=== PATIENT | male | born 1945 | race Caucasian/White ===

== ENCOUNTER 2017-01-07 07:43 | Inpatient (IN) | payer OTHER ==
[2017-01-07] VITALS (22 sets, daily range): BP systolic 92–135; BP diastolic 52–72; PULSE 62–92; RESP 8–20; Ht 170.2 cm; Wt 68.0 kg
[~2017-01-07] VITALS: Ht 170.2 cm; Wt 68.0 kg
[~2017-01-07 07:43] MED LIST: CEFAZOLIN 1 GM INJ ONE; CEFAZOLIN 2 GM/50 ML (PMX) 50 ML IVPB SCH; EPHEDrine SULFATE 50 MG/5 ML SYG ONE
[2017-01-07] MEDS ORDERED: DICL75TA2 PO (09:28)
[2017-01-07] MEDS ORDERED: BECL8.7A5 INH (09:28)
[2017-01-07] MEDS ORDERED: GABA-526 PO (09:28)
--- NOTE | 2017-01-07 11:02 | HPN ---
Date/Time of Note Date/Time of Note DATE: 01/07/17 TIME: 11:01 Interval H&P Admission Note Pt. seen H&P reviewed: No system changes SHARAD LAMB MD Jan 07, 2017 11:02
[2017-01-07] MEDS ORDERED: BUPIVACAINE 0.25%/EPI (SDV) 30 ML INJ ONE (11:04)
[2017-01-07] MEDS ORDERED: FENTAnyl 50 MCG/ML VIAL ONE (11:04)
[2017-01-07] MEDS ORDERED: CA CHLORIDE 10% 10 ML SYRINGE ONE ×2 (11:05→12:17)
[2017-01-07] MEDS ORDERED: THROMBIN 5000 UNIT VIAL ONE ×4 (11:05→13:58)
[2017-01-07] MEDS ORDERED: POLYMYXIN/BACITRACIN 1L IRRIG ONE (11:05)
[2017-01-07] MEDS ORDERED: NEOSTIGMINE 3 MG/3 ML SYRINGE ONE (11:16)
[2017-01-07] MEDS ORDERED: PROPOFOL 20 ML ONE (11:16)
[2017-01-07] MEDS ORDERED: ROCURONIUM 50 MG INJ ONE (11:16)
[2017-01-07] MEDS ORDERED: LIDOCAINE 100 MG SYRINGE ONE (11:16)
[2017-01-07] MEDS ORDERED: MIDAZOLAM 1 MG/ML 2 ML INJ ONE (11:16)
[2017-01-07] MEDS ORDERED: ONDANSETRON 4 MG INJ ONE (11:16)
[2017-01-07] MEDS ORDERED: GLYCOPYRROLATE 0.4 MG INJ ONE (11:16)
[2017-01-07] MEDS ORDERED: DEXAMETHASONE 4 MG/ML 1 ML INJ ONE (11:17)
[2017-01-07] MEDS ORDERED: CYCLOBENZAPRINE 10 MG TAB PO PRN (11:30)
[2017-01-07] MEDS ORDERED: NALOXONE (0.4 MG/ML) INJ IV PRN (11:30)
[2017-01-07] MEDS ORDERED: AL HYDROX/MG HYDROX/SIMETH 30 ML CUP PO PRN (11:30)
[2017-01-07] MEDS ORDERED: PROCHLORPERAZINE 10 MG INJ IV PRN (11:30)
[2017-01-07] MEDS ORDERED: HYDROCODONE/APAP (5/325) TAB PO PRN ×2 (11:30)
[2017-01-07] MEDS ORDERED: DIPHENHYDRAMINE 50 MG INJ IV PRN ×2 (11:30→12:30)
[2017-01-07] MEDS ORDERED: CEFAZOLIN 1 GM/50 ML (PMX) 50 ML IVPB SCH (11:30)
[2017-01-07] MEDS ORDERED: HYDROmorphONE 1 MG/ML SYG IV PRN (11:30)
[2017-01-07] MEDS ORDERED: BISACODYL 10 MG SUPP PR PRN (11:30)
[2017-01-07] MEDS ORDERED: HEPARIN 1000 UNITS/ML 10 ML INJ ONE (12:06)
[2017-01-07] MEDS ORDERED: FENTAnyl 50 MCG/ML VIAL IV PRN ×3 (12:30)
[2017-01-07] MEDS ORDERED: HYDROmorphONE (0.2 MG/ML) 10ML SYG IV PRN ×3 (12:30)
[2017-01-07] MEDS ORDERED: ONDANSETRON 4 MG INJ IV PRN (12:30)
[2017-01-07] MEDS ORDERED: MIDAZOLAM 1 MG/ML 2 ML INJ IV PRN (12:30)
[2017-01-07] MEDS ORDERED: hydrALAzine 20 MG INJ IV PRN (12:30)
[2017-01-07] MEDS ORDERED: EPHEDrine SULFATE 50 MG/5 ML SYG IV PRN (12:30)
[2017-01-07] MEDS ORDERED: TRIMETHOBENZAMIDE 100 MG/ML VIAL IM PRN (12:30)
[2017-01-07] MEDS ORDERED: MEPERIDINE 25 MG INJ IV PRN (12:30)
[2017-01-07] MEDS ORDERED: LABETALOL HCL 20MG INJ IV PRN (12:30)
[2017-01-07] MEDS ORDERED: GELATIN SIZE 100 SPONGE ONE ×2 (12:41→13:58)
[2017-01-07] MEDS ORDERED: IOHEXOL 300MG/ML 30 ML BTL ONE (12:56)
[2017-01-07] MEDS ORDERED: THROMBIN 5000 UNIT VIAL ZFS SCH (13:00)
[2017-01-07] MEDS: BUPIVACAINE 0.25% (MPF) 30 ML INJ ONE ×3 (13:12→15:16)
--- NOTE | 2017-01-07 15:37 | RADRPT ---
PROCEDURE: Lumbar spine series CLINICAL INDICATION: Intraoperative evaluation TECHNIQUE: 2 intraoperative lateral images of the lumbar spine were obtained. 4.9 seconds of fluo roscopic time was utilized. COMPARISON: None FINDINGS: Bony detail is suboptimal. There is localization of the L3 and L5 vertebral levels. There is no gr oss malalignment. IMPRESSION: Intraoperative images and fluoroscopic time as described above. RPTAT:AAJJ Physician Ashkan Date Time Electronically viewed and signed by Lacho Hartley Physician on 01/07/2017 15:37 /
[2017-01-07 15:47] LABS: BASOPHIL # 0.1 10^3/ul (0.0-0.1); BASOPHILS % 0.4 % (0.0-2.0); EOSINOPHILS % 0.1 % (0.0-7.0); HEMATOCRIT 39.1 % (42.0-52.0); LYMPHOCYTES # 2.8 10^3/ul (0.8-2.9); LYMPHOCYTES % 12.7 % (15.0-51.0); MEAN CORPUSCULAR HEMOGLOBIN 31.1 pg (29.0-33.0); MEAN CORPUSCULAR HGB CONC 33.3 g/dl (32.0-37.0); MEAN CORPUSCULAR VOLUME 93.4 fl (82.0-101.0); MONOCYTE # 0.2 10^3/ul (0.3-0.9); MONOCYTES % 0.9 % (0.0-11.0); NEUTROPHILS % 85.9 % (39.0-77.0); PLATELET COUNT 259 10^3/UL (140-440); RED BLOOD COUNT 4.19 10^6/ul (4.70-6.10); RED CELL DISTRIBUTION WIDTH 13.2 % (11.5-14.5); UNCORRECTED WBC 22.2 10^3/ul (4.8-10.8); WHITE BLOOD COUNT 22.2 10^3/ul (4.8-10.8)
[2017-01-07 15:50] LABS: CONDITION 1; LH ANALYZER COMMENTS 1
[2017-01-07 16:02] LABS: POTASSIUM 4.6 mmol/L (3.5-5.1)
[2017-01-07 16:08] LABS: CREATININE 0.88 mg/dl (0.61-1.24)
[2017-01-07 16:12] LABS: CALCIUM 8.2 mg/dl (8.4-10.2)
[2017-01-07] MEDS: D5W-0.45 NACL + KCL 20 MEQ 1,000 ML IV SCH (17:27)
--- NOTE | 2017-01-07 17:31 | OPR ---
DATE OF OPERATION: 01/07/2017 PREOPERATIVE DIAGNOSIS: L2 through L5 lumbar spinal stenosis at L2-3 disk herniation. POSTOPERATIVE DIAGNOSIS: L2 through L5 lumbar spinal stenosis at L2-L3 disk herniation. OPERATION PERFORMED: 1. Removal of spinous processes of L3, L4, and L5 for central decompressive laminectomy. 2. L2-3 with a bilateral partial facetectomy and foraminotomy with decompression of exiting and traversing L3 nerve root. 3. L3-4 with a central decompressive laminectomy with partial facetectomy and foraminotomy bilaterally at L3-4 with decompression of exiting L3 and traversing L4 nerve root. 4. L4-L5 with a central decompressive laminectomy with partial facetectomy and foraminotomy at L4-L5 with decompression of exiting L4 and traversing L5 nerve root. 5. Removal of disk material from the L2-3 space for diskectomy. 6. Use of intraoperative microscope for microdissection. 7. Use of intraoperative fluoroscopy for localization and placement of epidural catheter with an epidurogram with Isovue. 8. Use of intraoperative neuromonitoring with SSEPS, MEPS, and EMGs during and prior to the start of surgical procedure for upper and lower extremities as well as spinal cord monitoring. 9. Increased complexity due to significant bleeding during the procedure, losing more than 1200 mL of blood, which required Cell Saver reinfusion as well as 1 unit packed red blood cells. 10. Cosmetic wound closure of 10 cm incision. 11. Subfascial Hemovac drain placement. SURGEON: Chilango Suarez MD [employer] TENDER: Not applicable. FINDINGS: At the start of surgical procedure, it was noted that the patient's nerve root signals had significant deficit at L3 bilaterally is down 50%, L4 on the left side down 70%, on the right side down 60%; L5 on the left down 70%, on the right down 70%; and S1 nerve roots bilaterally down 60%. Both returned back to normal symmetric to the contralateral side at the conclusion of the procedure. In addition, there was an L2-3 disk herniation that was palpated during the procedure that was removed. This was consented and signed for prior to the procedure. BLOOD USAGE: Administration of 500 mL of Cell Saver that was collected during the procedure as well as 1 unit packed red blood cells. IMPLANTS AND GRAFTS: None. ESTIMATED BLOOD LOSS: 1200 mL. DRAINS: Hemovac drain and [place] catheter were placed during the procedure. SPECIMENS: None. COMPLICATIONS: None. TYPE OF ANESTHESIA: General. ANESTHESIOLOGIST: Dr. Rivera. BRIEF PREOPERATIVE HISTORY: The patient is a 71-year-old male who presented with significant symptoms of lower extremity neuro claudication, left worse than right, with evidence on MRI of severe central stenosis at L2-L3, L3-L4, and L4-L5 with a disk herniation at L2-L3. The patient was discussed surgical options and he consented to surgery as stated above with all risks, benefits, and alternatives discussed. OPERATION IN DETAIL: The patient was brought to the operating room, placed under anesthesia by Dr. Rivera, and given 2 grams of Ancef. The patient turned prone onto Janes frame and all bony prominences appropriately padded. Lumbar spine prepped and draped in usual sterile fashion and a lateral localizing film verified proper position for incision line focused over the L2- L3 to L4-L5 levels. Once this was done, a subcutaneous injection of 0.25% Marcaine with epinephrine was injected and a 10 cm incision over the L2-L3, L3- L4, and L4-L5 levels was performed with a subperiosteal dissection to the L3 lamina, L4 and L5 lamina. A central decompressive laminectomy was started with rongeur removing the spinous processes of L5, L4, and L3. These were removed and then we proved performed a bilateral partial facetectomy and foraminotomies at L2-L3, L3-L4, and L4-L5, decompressing at each level the respective nerve roots of L2-3 with the exiting L2 and traversing L3 nerve root, at L3-L4 with the exiting L3 and traversing L4 nerve root, and L4-L5 with exiting L4 and traversing L5 nerve root. Once concluded with the decompression centrally, we also noted with a [place] tool that there was significant disk herniation at L2-L3 level, which was also noted on MRI which we approached with a left-sided microdiskectomy. During the surgical procedure, the patient has significant blood loss with a 1200 mL estimated blood loss. Using CellSaver during the procedure, which we were able to infuse with 500 mL and also given 1 unit of packed red blood cells. This increased complexity of the procedure and added approximately 1 hour. Once concluded with our decompression and verified proper decompression with the [place] tool at each level, we started with our closing procedure. We copiously irrigated, placed a subfascial Hemovac drain, and started to close over a Hemovac drain. Prior to closure, we advanced an epidural catheter into the epidural space, injected with Isovue on lateral localizing film, verified proper position, then injected with 4 mL of 0.25% Marcaine and 100 mcg of fentanyl. We removed the catheter and then started with our closing procedure. The fascia closed with #1 Vicryl, subcutaneous skin with 2-0 Vicryl, and running 4- 0 Monocryl. The Hemovac drain was secured with 2-0 nylon and Dermabond was placed over the wound with clean and dry dressing placed over the wound and Hemovac drain output site. The patient was then turned supine onto the hospital bed, taken to recovery room in stable condition, moving lower extremities well, and following commands. The patient will be admitted for postop pain control, physical therapy, and antibiotics. The patient does have a history of COPD that will need to be followed by a medical doctor as well as evaluation of patient's blood needs due to the significant amount of blood loss during the procedure. All instrument, sponge counts, and needles were correct at the conclusion of the procedure. No complications were met. The patient will be admitted. Dictated By: CHILANGO MENEZES/GIULIANA Conf#: [id number] DID#: [id number] AUTUMN
[2017-01-07] MEDS: ONDANSETRON 4 MG INJ IV PRN (18:18)
[2017-01-07] MEDS ORDERED: ALBUTEROL HFA 8 GM INHALER INH PRN (18:30)
--- NOTE | 2017-01-07 18:55 | CONS ---
DATE OF ADMISSION: 01/07/2017 DATE OF CONSULTATION: 01/07/2017 REQUESTING PHYSICIAN: Dr. Suarez. REASON FOR CONSULTATION: Medical management. HISTORY OF PRESENT ILLNESS: This is a 71-year-old gentleman with past medical history of COPD, oste oarthritis, low back pain, who has been seen and evaluated by neurosurgeon, was found to have signif icant symptoms of lower extremity neural claudication, left worse than right, with evidence on MRI o f the severe central stenosis of L2-L3, L3-L4 and L4-L5 with disk herniation at L2-L3. The patient was discussed surgical options and the consent of surgery. After discussing the risks and benefits of the surgery, the patient then signed the consent. The patient was taken to OR today on 7 for L2-L3 diskectomy, and L2-L3, L3-L4 and L4-L5 decompression. The patient tolerated the procedu re well and was taken to recovery room in stable condition. At this time, patient is awake, alert, oriented. He is able to answer my question. He denies having any chest pain, shortness of breath, nausea, vomiting, diarrhea. No headache, dizziness, lightheadedness. No numbness in his extremitie s or any other discomfort. PAST MEDICAL AND SURGICAL HISTORY: 1. COPD. 2. Low back pain. 3. L2-3 disk herniation. SOCIAL HISTORY: Positive for history of smoking, which he stopped 3 months ago. He smoked about 2 packs per day x40 years. Alcohol: No. Illicit drugs: None. FAMILY HISTORY: Noncontributory. REVIEW OF SYSTEMS: As above per HPI. Denies having any chest pain, shortness of breath, nausea, vo miting, diarrhea. No headache, dizziness, lightheadedness. No change in visual acuity, diplopia, p hotophobia. No abdominal pain, no constipation, or any other discomfort. No recent travel history. No sick contact. PHYSICAL EXAMINATION VITAL SIGNS: Temperature 97.6, pulse 81, respiration 18, blood pressure ____, oxygen saturation ___ _ to 96% in room air. GENERAL APPEARANCE: The patient is lying in bed comfortably without any acute distress. He is awak e, alert, oriented. He is able to answer my questions properly. EYES AND ENT: Conjunctivae and lids are normal. Pupils are normal. Extraocular normal. Hearing g rossly normal. Lips, gum and tongue are normal. Oral mucosa is moist. NECK: Supple. Trachea is midline. No lymphadenopathy. RESPIRATORY: Effort is normal. Clear to auscultation bilaterally. CARDIOVASCULAR: Normal S1, S2. Regular rhythm and rate. No murmur, no bruits, no edema. Peripher al pulses, radial pulses palpable. Cap refill is normal. CHEST: Normal expansion of thorax during inspiration. GASTROINTESTINAL: Abdomen is soft, nontender, nondistended. Bowel sounds present. No guarding, no rebound. GENITOURINARY: Deferred. MUSCULOSKELETAL: Upper extremities within normal limits. Lower extremity within normal limits. No deformity. Sensory is intact. THORAX AND BACK: Normal expansion of thorax during inspiration. Back surgical site is dry and emory n. There is a drain in place. NEUROLOGIC: Cranial nerves II through XII are grossly intact. PSYCHIATRIC: Normal judgment and insight. Alert and oriented x3. Mood and affect is normal. LABORATORY WORK: WBC 22.2, hemoglobin 13, hematocrit 39.1, platelets 259. Sodium 143, potassium 4. 6, chloride 107, bicarbonate 25, BUN 21, creatinine 0.88, glucose 193, calcium 8.2. ASSESSMENT AND PLAN: 1. L2-L5 central spinal stenosis. The patient is status post L2-L3 diskectomy and L2-L3, L3-L4, an d L4-L5 decompression. Continue post-surgical care. PT, OT evaluate and treatment as per general s urgery. Continue pain medication. 2. Chronic obstructive pulmonary disease. Continue breathing treatment. 3. Leukocytosis, likely post-surgical, likely secondary to dexamethasone during the surgery. The p atient has been started on prophylactic antibiotics. We will continue cefazolin. 4. History of chronic obstructive pulmonary disease. Continue breathing treatment, QVAR. 5. History of neuropathy. Continue gabapentin. 6. For deep venous thrombosis prophylaxis, on sequential compression devices. 7. For gastrointestinal prophylaxis, on proton pump inhibitor. 8. We will continue to monitor patient closely. Further recommendations, management and treatment as per clinical course. Total amount of time spent for evaluation of patient and consultation, dictation 40 minutes. Dictated By: TEO EASLEY/NTS Conf#: [id number] DID#: [id number]
[2017-01-07] MEDS: DOCUSATE SODIUM 100 MG CAP PO SCH (20:50)
[2017-01-08 00:16] VITALS: BP 94/53; RESP 19
[2017-01-08] MEDS: D5W-0.45 NACL + KCL 20 MEQ 1,000 ML IV SCH ×4 (00:22→20:25)
[2017-01-08] MEDS: CEFAZOLIN 1 GM/50 ML (PMX) 50 ML IVPB SCH ×3 (01:39→17:03)
[2017-01-08 05:45] LABS: POTASSIUM 4.7 mmol/L (3.5-5.1)
[2017-01-08 05:48] LABS: CREATININE 0.81 mg/dl (0.61-1.24)
[2017-01-08] MEDS: PANTOPRAZOLE 40 MG INJ IV SCH (05:52)
[2017-01-08 06:41] LABS: BASOPHILS % 0.1 % (0.0-2.0); HEMATOCRIT 30.2 % (42.0-52.0); HEMOGLOBIN 10.4 g/dl (14.0-18.0); LYMPHOCYTES # 1.6 10^3/ul (0.8-2.9); LYMPHOCYTES % 12.9 % (15.0-51.0); MEAN CORPUSCULAR HEMOGLOBIN 31.7 pg (29.0-33.0); MEAN CORPUSCULAR HGB CONC 34.4 g/dl (32.0-37.0); MEAN CORPUSCULAR VOLUME 92.4 fl (82.0-101.0); MEAN PLATELET VOLUME 10.7 fl (7.4-10.4); MONOCYTE # 1.1 10^3/ul (0.3-0.9); MONOCYTES % 8.6 % (0.0-11.0); NEUTROPHIL # 9.7 10^3/ul (1.6-7.5); NEUTROPHILS % 78.4 % (39.0-77.0); PLATELET COUNT 195 10^3/UL (140-440); RED BLOOD COUNT 3.27 10^6/ul (4.70-6.10); RED CELL DISTRIBUTION WIDTH 13.5 % (11.5-14.5); UNCORRECTED WBC 12.4 10^3/ul (4.8-10.8); WHITE BLOOD COUNT 12.4 10^3/ul (4.8-10.8)
[2017-01-08 07:07] LABS: CONDITION 1
[2017-01-08 07:49] VITALS: BP 103/54; RESP 16
[2017-01-08 08:25] VITALS: BP 103/54; RESP 16
[2017-01-08] MEDS: DOCUSATE SODIUM 100 MG CAP PO SCH ×2 (08:55→20:25)
--- NOTE | 2017-01-08 11:22 | PN ---
Date/Time of Note Date/Time of Note DATE: 01/08/17 TIME: 11:15 Assessment/Plan VTE Prophylaxis VTE Prophylaxis Intervention: SCD's Lines/Catheters IV Catheter Type (from Nrsg): Peripheral IV Urinary Cath still in place: Yes Reason Cath still needed: other (indicate) Assessment/Plan Chief Complaint/Hosp Course ASSESSMENT AND PLAN: 1. L2-L5 central spinal stenosis. The patient is status post L2-L3 diskectomy and L2-L3, L3-L4, and L4-L5 decompression. Continue post-surgical care. PT, OT evaluate and treat as per orthopedic surgeon. Continue pain medication. 2. Chronic obstructive pulmonary disease. Continue breathing treatment.QVAR. 3. Leukocytosis, likely post-surgical, likely secondary to dexamethasone during the surgery. The patient has been started on prophylactic antibiotics. We will continue cefazolin. 4. History of neuropathy. Continue gabapentin. 5. For gastrointestinal prophylaxis, on proton pump inhibitor. 6. For deep venous thrombosis prophylaxis, on sequential compression devices. We will continue to monitor patient closely. Further recommendations, management and treatment as per clinical course. Problems: Subjective 24 Hr Interval Summary Free Text/Dictation Patient complains of having lightheadedness and dizziness this morning upon standing Had trouble sleeping last night No nausea vomiting diarrhea Denies of any chest pain Exam/Review of Systems Vital Signs Vitals Vital Signs Date Time Temp Pulse Resp B/P Pulse Ox O2 Delivery O2 Flow Rate FiO2 01/08/17 08:25 99.1 72 16 103/54 97 01/07/17 18:30 Nasal Cannula 2.0 Intake and Output 01/07/17 01/07/17 01/08/17 15:00 23:00 07:00 Intake Total 3600 ml 0 ml 1355 ml Output Total 1935 ml 1700 ml Balance 3600 ml -1935 ml -345 ml Exam General: The patient is well-developed, Not in acute distress. HEENT: Atraumatic, normocephalic. The pupils are equal and round . Neck: Supple with full range of motion. Chest: Normal expansion of the thorax during inspiration Lungs: Clear to auscultation bilaterally Heart: Normal S1-S2, Regular rhythm and rate. Abdomen: Soft , nontender, nondistended , bowel sounds are present. Extremities: Normal to inspection, no edema no cyanosis Neurologic: Normal mental status,The patient is awake, alert and oriented . Lumbosacral: Drain in place, surgical site is dry and clean Results Result Diagram: 01/08/17 0435 01/08/17 0435 Results 24 hrs Laboratory Tests Test 01/07/17 15:40 01/08/17 04:35 Anion Gap 16 10 # Basophils # 0.1 0.0 Basophils % 0.4 0.1 Blood Urea Nitrogen 21 H 23 H Calcium Level 8.2 L 8.0 L Carbon Dioxide Level 25 29 Chloride Level 107 105 Creatinine 0.88 0.81 Eosinophils # 0.0 0.0 Eosinophils % 0.1 0.0 Glucose Level 193 128 # Hematocrit 39.1 L 30.2 #L Hemoglobin 13.0 L 10.4 L Lymphocytes # 2.8 1.6 Lymphocytes % 12.7 L 12.9 L Mean Corpuscular Hemoglobin 31.1 31.7 Mean Corpuscular Hemoglobin Concent 33.3 34.4 Mean Corpuscular Volume 93.4 92.4 Mean Platelet Volume 10.0 10.7 H Monocytes # 0.2 L 1.1 H Monocytes % 0.9 8.6 Neutrophils # 19.0 H 9.7 H Neutrophils % 85.9 H 78.4 H Nucleated Red Blood Cells # 0.0 0.0 Nucleated Red Blood Cells % 0.0 0.0 Platelet Count 259 195 # Potassium Level 4.6 4.7 Red Blood Count 4.19 L 3.27 #L Red Cell Distribution Width 13.2 13.5 Sodium Level 143 139 White Blood Count 22.2 H 12.4 #H Blood Morphology Comment Medications Medications Current Medications Potassium Chloride/Dextrose/ Sod Cl (D5-1/2ns + KCl 20 Meq) 1,000 ml @ 75 mls/ hr [id number] IV Last administered on 01/08/17 08:57; Admin Dose 75 MLS/HR; Start 01/07/17 at 11:02 Acetaminophen/ Hydrocodone Bitart ([place] (5/325)) 1 tab Q4H PRN PO PAIN LEVEL 1 -5; Start 01/07/17 at 11:30 Acetaminophen/ Hydrocodone Bitart ([place] (5/325)) 2 tab Q4H PRN PO PAIN LEVEL 6 -10 Last administered on 01/08/17 05:58; Admin Dose 2 TAB; Start 01/07/17 at 11 :30 Hydromorphone HCl (Dilaudid) 0.2 mg Q1H PRN IV BREAKTHROUGH PAIN Last administered on 01/08/17 10:56; Admin Dose 0.2 MG; Start 01/07/17 at 11:30 Ondansetron HCl (Zofran Inj) 4 mg Q6H PRN IV NAUSEA AND/OR VOMITING Last administered on 01/07/17 18:18; Admin Dose 4 MG; Start 01/07/17 at 11:30 Prochlorperazine (Compazine Inj) 10 mg Q6H PRN IV NAUSEA AND/OR VOMITING; Start 01/07/17 at 11:30 Bisacodyl (Dulcolax Supp) 10 mg DAILY PRN [place] CONSTIPATION; Start 01/07/17 at 11 :30 Docusate Sodium (Colace) 100 mg BID PO Last administered on 01/08/17 08:55; Admin Dose 100 MG; Start 01/07/17 at 21:00 Pantoprazole (Protonix Iv) 40 mg DAILY@06 IV Last administered on 01/08/17 05: 52; Admin Dose 40 MG; Start 01/08/17 at 06:00 Al Hydrox/Mg Hydrox/Simethicone (Mag-Al Plus) 15 ml Q6H PRN PO CONSTIPATION/ DYSPEPSIA; Start 01/07/17 at 11:30 Acetaminophen (Tylenol Tab) 650 mg Q4H PRN PO LEO OR TEMP GREATER THAN 101.3F; Start 01/07/17 at 11:30 Cyclobenzaprine HCl (Flexeril) 5 mg TID PRN PO MUSCLE SPASMS; Start 01/07/17 at 11:30 Diphenhydramine HCl (Benadryl) 25 mg Q6H PRN IV ITCHING; Start 01/07/17 at 11: 30 Naloxone HCl 0.2 mg 0.2 mg Q2M PRN IV RR 8 BREATHS/MIN OR LESS; Start 01/07/17 at 11:30 Cefazolin Sodium (Ancef 1 Gm/50 ml (Pmx)) 50 ml @ 100 mls/hr Q8H IVPB Last administered on 01/08/17 08:55; Admin Dose 100 MLS/HR; Start 01/08/17 at 01:30 ; Stop 01/08/17 at 17:59 Zolpidem Tartrate (Ambien) 5 mg HS PRN PO INSOMNIA; Start 01/08/17 at 11:30; Status UNV TEO MORATAYA MD Jan 08, 2017 11:22
[2017-01-08] MEDS: ONDANSETRON 4 MG INJ IV PRN (13:19)
[2017-01-08] MEDS: ACETAMINOPHEN 325 MG TAB PO PRN (14:57)
--- NOTE | 2017-01-08 15:00 | PN ---
Date/Time of Note Date/Time of Note DATE: 01/08/17 TIME: 14:55 Assessment/Plan VTE Prophylaxis VTE Prophylaxis Intervention: ambulation, anti-embolic stocking VTE Contraindication Reason: bleeding Lines/Catheters IV Catheter Type (from Nrsg): Peripheral IV Urinary Cath still in place: No Assessment/Plan Chief Complaint/Hosp Course s/p L2-5 central decompression and L2-3 discectomy Problems: Assessment/Plan doing well s/p decompression Some dizziness today, could not tolerate 2nd round of PT. Fluids continued Headache, Tylenol ordered Pain meds, [place] and Dilaudid OOB to chair and Ambulation Could not sleep last night, Ambien ordered WBC improving, continue Ancef H/H stable 10.4/30.2 BP in 100's Afebrile Hemovac drained 100cc in last 10 hours. Plan for possible DC home tomorrow once Hemovac is DC'd and pain controlled and cleared by Pt Home Health to be arranged for DC home. PAtient wants to go home, not to a SNF. Cont'd Hospitalization Reason: pain control, hemovac drain, antibiotics Exam/Review of Systems Vital Signs Vitals Vital Signs Date Time Temp Pulse Resp B/P Pulse Ox O2 Delivery O2 Flow Rate FiO2 01/08/17 08:25 99.1 72 16 103/54 97 01/07/17 18:30 Nasal Cannula 2.0 Intake and Output 01/07/17 01/07/17 01/08/17 15:00 23:00 07:00 Intake Total 3600 ml 0 ml 1355 ml Output Total 1935 ml 1700 ml Balance 3600 ml -1935 ml -345 ml Exam Musculoskeletal: muscle weakness (pre-existing left anterior tibialis wweakness ) Results Result Diagram: 01/08/17 0435 01/08/17 0435 Results 24 hrs Laboratory Tests Test 01/07/17 15:40 01/08/17 04:35 Anion Gap 16 10 # Basophils # 0.1 0.0 Basophils % 0.4 0.1 Blood Urea Nitrogen 21 H 23 H Calcium Level 8.2 L 8.0 L Carbon Dioxide Level 25 29 Chloride Level 107 105 Creatinine 0.88 0.81 Eosinophils # 0.0 0.0 Eosinophils % 0.1 0.0 Glucose Level 193 128 # Hematocrit 39.1 L 30.2 #L Hemoglobin 13.0 L 10.4 L Lymphocytes # 2.8 1.6 Lymphocytes % 12.7 L 12.9 L Mean Corpuscular Hemoglobin 31.1 31.7 Mean Corpuscular Hemoglobin Concent 33.3 34.4 Mean Corpuscular Volume 93.4 92.4 Mean Platelet Volume 10.0 10.7 H Monocytes # 0.2 L 1.1 H Monocytes % 0.9 8.6 Neutrophils # 19.0 H 9.7 H Neutrophils % 85.9 H 78.4 H Nucleated Red Blood Cells # 0.0 0.0 Nucleated Red Blood Cells % 0.0 0.0 Platelet Count 259 195 # Potassium Level 4.6 4.7 Red Blood Count 4.19 L 3.27 #L Red Cell Distribution Width 13.2 13.5 Sodium Level 143 139 White Blood Count 22.2 H 12.4 #H Blood Morphology Comment Medications Medications Current Medications Potassium Chloride/Dextrose/ Sod Cl (D5-1/2ns + KCl 20 Meq) 1,000 ml @ 75 mls/ hr [id number] IV Last administered on 01/08/17 08:57; Admin Dose 75 MLS/HR; Start 01/07/17 at 11:02 Acetaminophen/ Hydrocodone Bitart ([place] (5/325)) 1 tab Q4H PRN PO PAIN LEVEL 1 -5; Start 01/07/17 at 11:30 Acetaminophen/ Hydrocodone Bitart ([place] (5/325)) 2 tab Q4H PRN PO PAIN LEVEL 6 -10 Last administered on 01/08/17 05:58; Admin Dose 2 TAB; Start 01/07/17 at 11 :30 Hydromorphone HCl (Dilaudid) 0.2 mg Q1H PRN IV BREAKTHROUGH PAIN Last administered on 01/08/17 10:56; Admin Dose 0.2 MG; Start 01/07/17 at 11:30 Ondansetron HCl (Zofran Inj) 4 mg Q6H PRN IV NAUSEA AND/OR VOMITING Last administered on 01/08/17 13:19; Admin Dose 4 MG; Start 01/07/17 at 11:30 Prochlorperazine (Compazine Inj) 10 mg Q6H PRN IV NAUSEA AND/OR VOMITING; Start 01/07/17 at 11:30 Bisacodyl (Dulcolax Supp) 10 mg DAILY PRN [place] CONSTIPATION; Start 01/07/17 at 11 :30 Docusate Sodium (Colace) 100 mg BID PO Last administered on 01/08/17 08:55; Admin Dose 100 MG; Start 01/07/17 at 21:00 Pantoprazole (Protonix Iv) 40 mg DAILY@06 IV Last administered on 01/08/17 05: 52; Admin Dose 40 MG; Start 01/08/17 at 06:00 Al Hydrox/Mg Hydrox/Simethicone (Mag-Al Plus) 15 ml Q6H PRN PO CONSTIPATION/ DYSPEPSIA; Start 01/07/17 at 11:30 Acetaminophen (Tylenol Tab) 650 mg Q4H PRN PO LEO OR TEMP GREATER THAN 101.3F; Start 01/07/17 at 11:30 Cyclobenzaprine HCl (Flexeril) 5 mg TID PRN PO MUSCLE SPASMS; Start 01/07/17 at 11:30 Diphenhydramine HCl (Benadryl) 25 mg Q6H PRN IV ITCHING; Start 01/07/17 at 11: 30 Naloxone HCl 0.2 mg 0.2 mg Q2M PRN IV RR 8 BREATHS/MIN OR LESS; Start 01/07/17 at 11:30 Cefazolin Sodium (Ancef 1 Gm/50 ml (Pmx)) 50 ml @ 100 mls/hr Q8H IVPB Last administered on 01/08/17 08:55; Admin Dose 100 MLS/HR; Start 01/08/17 at 01:30 ; Stop 01/08/17 at 17:59 Zolpidem Tartrate (Ambien) 5 mg HS PRN PO INSOMNIA; Start 01/08/17 at 11:30 SHARAD LAMB MD Jan 08, 2017 15:00
[2017-01-08] MEDS: ZOLPIDEM 5 MG TAB PO PRN (20:25)
[2017-01-08 20:30] VITALS: BP 113/56; RESP 20
[2017-01-09] MEDS: D5W-0.45 NACL + KCL 20 MEQ 1,000 ML IV SCH ×2 (03:02→13:03)
[2017-01-09 05:34] LABS: BASOPHILS % 0.2 % (0.0-2.0); EOSINOPHILS % 0.1 % (0.0-7.0); HEMATOCRIT 27.2 % (42.0-52.0); HEMOGLOBIN 9.3 g/dl (14.0-18.0); LYMPHOCYTES % 15.8 % (15.0-51.0); MEAN CORPUSCULAR HEMOGLOBIN 31.7 pg (29.0-33.0); MEAN CORPUSCULAR HGB CONC 34.2 g/dl (32.0-37.0); MEAN CORPUSCULAR VOLUME 92.6 fl (82.0-101.0); MEAN PLATELET VOLUME 10.5 fl (7.4-10.4); MONOCYTES % 8.4 % (0.0-11.0); NEUTROPHIL # 9.4 10^3/ul (1.6-7.5); NEUTROPHILS % 75.5 % (39.0-77.0); PLATELET COUNT 168 10^3/UL (140-440); RED BLOOD COUNT 2.93 10^6/ul (4.70-6.10); RED CELL DISTRIBUTION WIDTH 13.2 % (11.5-14.5); UNCORRECTED WBC 12.4 10^3/ul (4.8-10.8); WHITE BLOOD COUNT 12.4 10^3/ul (4.8-10.8)
[2017-01-09 05:40] LABS: CONDITION 1
[2017-01-09] MEDS: PANTOPRAZOLE 40 MG INJ IV SCH (05:42)
[2017-01-09 05:49] LABS: POTASSIUM 4.1 mmol/L (3.5-5.1)
[2017-01-09 05:51] LABS: CREATININE 0.75 mg/dl (0.61-1.24)
[2017-01-09 05:52] LABS: CALCIUM 8.1 mg/dl (8.4-10.2)
[2017-01-09 08:04] VITALS: BP 86/48; RESP 18
[2017-01-09] MEDS: DOCUSATE SODIUM 100 MG CAP PO SCH ×2 (09:19→20:31)
--- NOTE | 2017-01-09 11:36 | PN ---
Date/Time of Note Date/Time of Note DATE: 01/09/17 TIME: 11:35 Assessment/Plan VTE Prophylaxis VTE Prophylaxis Intervention: SCD's Lines/Catheters IV Catheter Type (from Nrs): Peripheral IV Urinary Cath still in place: No Assessment/Plan Chief Complaint/Hosp Course ASSESSMENT AND PLAN: 1. L2-L5 central spinal stenosis. The patient is status post L2-L3 diskectomy and L2-L3, L3-L4, and L4-L5 decompression. Continue post-surgical care. PT, OT evaluate and treat as per orthopedic surgeon. Continue pain medication. 2. Chronic obstructive pulmonary disease. Continue breathing treatment.QVAR. 3. Leukocytosis, likely post-surgical, likely secondary to dexamethasone during the surgery. The patient has been started on prophylactic antibiotics. We will continue cefazolin. 4. History of neuropathy. Continue gabapentin. 5. Orthostatic hypotension. Started patient on gentle IV fluids 6. For gastrointestinal prophylaxis, on proton pump inhibitor. 7. For deep venous thrombosis prophylaxis, on sequential compression devices. We will continue to monitor patient closely. Further recommendations, management and treatment as per clinical course. Problems: Subjective 24 Hr Interval Summary Free Text/Dictation Patient denies any chest pain or shortness of breath Upon ambulation patient had an episode of dizziness No nausea vomiting diarrhea Complains of having continuous hiccups Exam/Review of Systems Vital Signs Vitals Vital Signs Date Time Temp Pulse Resp B/P Pulse Ox O2 Delivery O2 Flow Rate FiO2 01/09/17 08:04 98.5 81 18 86/48 95 01/07/17 18:30 Nasal Cannula 2.0 Intake and Output 01/08/17 01/08/17 01/09/17 15:00 23:00 07:00 Intake Total 350 ml 840 ml 375 ml Output Total 475 ml 1000 ml Balance 350 ml 365 ml -625 ml Exam General: The patient is well-developed, Not in acute distress. HEENT: Atraumatic, normocephalic. The pupils are equal and round . Neck: Supple with full range of motion. Chest: Normal expansion of the thorax during inspiration Lungs: Clear to auscultation bilaterally Heart: Normal S1-S2, Regular rhythm and rate. Abdomen: Soft , nontender, nondistended , bowel sounds are present. Extremities: Normal to inspection, no edema no cyanosis Neurologic: Normal mental status,The patient is awake, alert and oriented . Lumbosacral: Drain in place surgical site is dry and clean Results Result Diagram: 01/09/17 0415 01/09/17 0415 Results 24 hrs Laboratory Tests Test 01/09/17 04:15 Anion Gap 9 Basophils # 0.0 Basophils % 0.2 Blood Morphology Comment Blood Urea Nitrogen 15 Calcium Level 8.1 L Carbon Dioxide Level 31 Chloride Level 104 Creatinine 0.75 Eosinophils # 0.0 Eosinophils % 0.1 Glucose Level 113 Hematocrit 27.2 L Hemoglobin 9.3 L Lymphocytes # 2.0 Lymphocytes % 15.8 Mean Corpuscular Hemoglobin 31.7 Mean Corpuscular Hemoglobin Concent 34.2 Mean Corpuscular Volume 92.6 Mean Platelet Volume 10.5 H Monocytes # 1.0 H Monocytes % 8.4 Neutrophils # 9.4 H Neutrophils % 75.5 Nucleated Red Blood Cells # 0.0 Nucleated Red Blood Cells % 0.0 Platelet Count 168 Potassium Level 4.1 Red Blood Count 2.93 L Red Cell Distribution Width 13.2 Sodium Level 140 White Blood Count 12.4 H Medications Medications Current Medications Potassium Chloride/Dextrose/ Sod Cl (D5-1/2ns + KCl 20 Meq) 1,000 ml @ 75 mls/ hr [id number] IV Last administered on 01/08/17 20:25; Admin Dose 75 MLS/HR; Start 01/07/17 at 11:02 Acetaminophen/ Hydrocodone Bitart ([place] (5/325)) 1 tab Q4H PRN PO PAIN LEVEL 1 -5; Start 01/07/17 at 11:30 Acetaminophen/ Hydrocodone Bitart ([place] (5/325)) 2 tab Q4H PRN PO PAIN LEVEL 6 -10 Last administered on 01/08/17 05:58; Admin Dose 2 TAB; Start 01/07/17 at 11 :30 Hydromorphone HCl (Dilaudid) 0.2 mg Q1H PRN IV BREAKTHROUGH PAIN Last administered on 01/08/17 10:56; Admin Dose 0.2 MG; Start 01/07/17 at 11:30 Ondansetron HCl (Zofran Inj) 4 mg Q6H PRN IV NAUSEA AND/OR VOMITING Last administered on 01/08/17 13:19; Admin Dose 4 MG; Start 01/07/17 at 11:30 Prochlorperazine (Compazine Inj) 10 mg Q6H PRN IV NAUSEA AND/OR VOMITING; Start 01/07/17 at 11:30 Bisacodyl (Dulcolax Supp) 10 mg DAILY PRN [place] CONSTIPATION; Start 01/07/17 at 11 :30 Docusate Sodium (Colace) 100 mg BID PO Last administered on 01/09/17 09:19; Admin Dose 100 MG; Start 01/07/17 at 21:00 Pantoprazole (Protonix Iv) 40 mg DAILY@06 IV Last administered on 01/09/17 05: 42; Admin Dose 40 MG; Start 01/08/17 at 06:00 Al Hydrox/Mg Hydrox/Simethicone (Mag-Al Plus) 15 ml Q6H PRN PO CONSTIPATION/ DYSPEPSIA; Start 01/07/17 at 11:30 Acetaminophen (Tylenol Tab) 650 mg Q4H PRN PO LEO OR TEMP GREATER THAN 101.3F Last administered on 01/08/17 14:57; Admin Dose 650 MG; Start 01/07/17 at 11:30 Cyclobenzaprine HCl (Flexeril) 5 mg TID PRN PO MUSCLE SPASMS; Start 01/07/17 at 11:30 Diphenhydramine HCl (Benadryl) 25 mg Q6H PRN IV ITCHING; Start 01/07/17 at 11: 30 Naloxone HCl (Narcan) 0.2 mg Q2M PRN IV RR 8 BREATHS/MIN OR LESS; Start at 11:30 Zolpidem Tartrate (Ambien) 5 mg HS PRN PO INSOMNIA Last administered on 20:25; Admin Dose 5 MG; Start 01/08/17 at 11:30 Patient Own Medication 1 ea BID XX ; Start 01/09/17 at 21:00 TEO MORATAYA MD Jan 09, 2017 11:36
[2017-01-09] MEDS ORDERED: TRIMETHOBENZAMIDE 300 MG CAP PO ONE (12:00)
[2017-01-09] MEDS: SOD CHLORIDE 0.45% 500 ML IV SCH ×2 (12:00→18:40)
[2017-01-09] MEDS: BECLOMETHASONE 80 MCG XX SCH ×2 (12:01→20:30)
--- NOTE | 2017-01-09 12:14 | PN ---
Date/Time of Note Date/Time of Note DATE: 01/09/17 TIME: 12:12 Assessment/Plan VTE Prophylaxis VTE Prophylaxis Intervention: ambulation, anti-embolic stocking VTE Contraindication Reason: bleeding Lines/Catheters IV Catheter Type (from Nrsg): Peripheral IV Urinary Cath still in place: No Assessment/Plan Chief Complaint/Hosp Course s/p L2-5 central decompression and L2-3 discectomy Problems: Assessment/Plan s/p decompression Hemovac removed H/H Some dizziness with ambulation Consider trasnfusion, but will defer to medicine if agree to give one unit PRBC' Plan DC home tomorrow. PT for ambulation Sitting in chair currently Dressing changed, no erythema or discharge Exam/Review of Systems Vital Signs Vitals Vital Signs Date Time Temp Pulse Resp B/P Pulse Ox O2 Delivery O2 Flow Rate FiO2 01/09/17 08:04 98.5 81 18 86/48 95 01/07/17 18:30 Nasal Cannula 2.0 Intake and Output 01/08/17 01/08/17 01/09/17 15:00 23:00 07:00 Intake Total 350 ml 840 ml 375 ml Output Total 475 ml 1000 ml Balance 350 ml 365 ml -625 ml Results Result Diagram: 01/09/17 0415 01/09/17 0415 Results 24 hrs Laboratory Tests Test 01/09/17 04:15 Anion Gap 9 Basophils # 0.0 Basophils % 0.2 Blood Morphology Comment Blood Urea Nitrogen 15 Calcium Level 8.1 L Carbon Dioxide Level 31 Chloride Level 104 Creatinine 0.75 Eosinophils # 0.0 Eosinophils % 0.1 Glucose Level 113 Hematocrit 27.2 L Hemoglobin 9.3 L Lymphocytes # 2.0 Lymphocytes % 15.8 Mean Corpuscular Hemoglobin 31.7 Mean Corpuscular Hemoglobin Concent 34.2 Mean Corpuscular Volume 92.6 Mean Platelet Volume 10.5 H Monocytes # 1.0 H Monocytes % 8.4 Neutrophils # 9.4 H Neutrophils % 75.5 Nucleated Red Blood Cells # 0.0 Nucleated Red Blood Cells % 0.0 Platelet Count 168 Potassium Level 4.1 Red Blood Count 2.93 L Red Cell Distribution Width 13.2 Sodium Level 140 White Blood Count 12.4 H Medications Medications Current Medications Potassium Chloride/Dextrose/ Sod Cl (D5-1/2ns + KCl 20 Meq) 1,000 ml @ 75 mls/ hr [id number] IV Last administered on 01/08/17 20:25; Admin Dose 75 MLS/HR; Start 01/07/17 at 11:02 Acetaminophen/ Hydrocodone Bitart ([place] (5/325)) 1 tab Q4H PRN PO PAIN LEVEL 1 -5; Start 01/07/17 at 11:30 Acetaminophen/ Hydrocodone Bitart ([place] (5/325)) 2 tab Q4H PRN PO PAIN LEVEL 6 -10 Last administered on 01/08/17 05:58; Admin Dose 2 TAB; Start 01/07/17 at 11 :30 Hydromorphone HCl (Dilaudid) 0.2 mg Q1H PRN IV BREAKTHROUGH PAIN Last administered on 01/08/17 10:56; Admin Dose 0.2 MG; Start 01/07/17 at 11:30 Ondansetron HCl (Zofran Inj) 4 mg Q6H PRN IV NAUSEA AND/OR VOMITING Last administered on 01/08/17 13:19; Admin Dose 4 MG; Start 01/07/17 at 11:30 Prochlorperazine (Compazine Inj) 10 mg Q6H PRN IV NAUSEA AND/OR VOMITING; Start 01/07/17 at 11:30 Bisacodyl (Dulcolax Supp) 10 mg DAILY PRN [place] CONSTIPATION; Start 01/07/17 at 11 :30 Docusate Sodium (Colace) 100 mg BID PO Last administered on 01/09/17 09:19; Admin Dose 100 MG; Start 01/07/17 at 21:00 Pantoprazole (Protonix Iv) 40 mg DAILY@06 IV Last administered on 01/09/17 05: 42; Admin Dose 40 MG; Start 01/08/17 at 06:00 Al Hydrox/Mg Hydrox/Simethicone (Mag-Al Plus) 15 ml Q6H PRN PO CONSTIPATION/ DYSPEPSIA; Start 01/07/17 at 11:30 Acetaminophen (Tylenol Tab) 650 mg Q4H PRN PO LEO OR TEMP GREATER THAN 101.3F Last administered on 01/08/17 14:57; Admin Dose 650 MG; Start 01/07/17 at 11:30 Cyclobenzaprine HCl (Flexeril) 5 mg TID PRN PO MUSCLE SPASMS; Start 01/07/17 at 11:30 Diphenhydramine HCl (Benadryl) 25 mg Q6H PRN IV ITCHING; Start 01/07/17 at 11: 30 Naloxone HCl (Narcan) 0.2 mg Q2M PRN IV RR 8 BREATHS/MIN OR LESS; Start at 11:30 Zolpidem Tartrate (Ambien) 5 mg HS PRN PO INSOMNIA Last administered on 20:25; Admin Dose 5 MG; Start 01/08/17 at 11:30 Patient Own Medication 1 ea 1 ea BID XX Last administered on 01/09/17 12:01; Admin Dose 1 EA; Start 01/09/17 at 21:00 Sodium Chloride (1/2 NS) 500 ml @ 75 mls/hr Q6H40M IV ; Start 01/09/17 at 12:00 SHARAD LAMB MD Jan 09, 2017 12:14
[2017-01-09 14:47] VITALS: BP 99/55; PULSE 87; RESP 18
[2017-01-09] MEDS: ACETAMINOPHEN 325 MG TAB PO PRN (16:10)
[2017-01-09 19:00] VITALS: BP 94/53; RESP 18
[2017-01-09] MEDS: ZOLPIDEM 5 MG TAB PO PRN (20:31)
[2017-01-10] MEDS: SOD CHLORIDE 0.45% 500 ML IV SCH ×3 (01:20→14:40)
[2017-01-10] MEDS: D5W-0.45 NACL + KCL 20 MEQ 1,000 ML IV SCH ×2 (02:01→05:42)
[2017-01-10] MEDS: PANTOPRAZOLE 40 MG INJ IV SCH (05:13)
[2017-01-10 08:27] VITALS: BP 106/57; RESP 18
--- NOTE | 2017-01-10 08:34 | DS ---
Date/Time of Note Date/Time of Note DATE: 01/10/17 TIME: 08:32 Discharge Summary Admission/Discharge Info Admit Date/Time Jan 07, 2017 at 07:43 Discharge Date/Time 01/10/2017 Final Diagnosis s/p L2-5 decompression with L2-3 discectomy Patient Condition: Good Consults [facility], Dr. Atkins Procedures L2-5 decompression Hx of Present Illness Did well post-op with pain control, PT and ambulation Hospital Course ASSESSMENT AND PLAN: 1. L2-L5 central spinal stenosis. The patient is status post L2-L3 diskectomy and L2-L3, L3-L4, and L4-L5 decompression. Continue post-surgical care. PT, OT evaluate and treat as per orthopedic surgeon. Continue pain medication. 2. Chronic obstructive pulmonary disease. Continue breathing treatment.QVAR. 3. Leukocytosis, likely post-surgical, likely secondary to dexamethasone during the surgery. The patient has been started on prophylactic antibiotics. We will continue cefazolin. 4. History of neuropathy. Continue gabapentin. 5. Orthostatic hypotension. Started patient on gentle IV fluids 6. For gastrointestinal prophylaxis, on proton pump inhibitor. 7. For deep venous thrombosis prophylaxis, on sequential compression devices. We will continue to monitor patient closely. Further recommendations, management and treatment as per clinical course. Home Meds Reported Medications Beclomethasone Dip* (Qvar 80*) 7.3 Gm Inha, 2 PUFF INH BID, #1 INHALER 01/07/17 Gabapentin* (Gabapentin*) 600 Mg Tablet, 600 MG PO TID, #90 TAB 01/07/17 Diclofenac Sodium* (Diclofenac Sodium*) 75 Mg Tablet., 75 MG PO BID, #60 TAB 01/07/17 Follow-up Plan in office in 7-10 days, we will call to schedule appt Pending Labs none SHARAD LAMB MD Jan 10, 2017 08:34
--- NOTE | 2017-01-10 08:36 | PDOCDIS ---
Discharge Instructions DIAGNOSIS Discharge Diagnosis: L2-5 decompression CONDITION Patient Condition: Good HOME CARE INSTRUCTIONS: Diet Instructions: RegularSpecial Diet: REGULAR ACTIVITY: Activity Restrictions: Slowly Increase Activity Rest between Activity Avoid heavy lifting Do not Drive Do not operate Machinery Do not operate Power Tool Avoid Heavy Housework Bathing Restrictions: ShowerActivity Restrictions Comment: no BLT FOLLOW UP/APPOINTMENTS Appointments we will call for appt in 7-10 days SHARAD LAMB MD Jan 10, 2017 08:36
[2017-01-10] MEDS: DOCUSATE SODIUM 100 MG CAP PO SCH (09:38)
[2017-01-10] MEDS: BECLOMETHASONE 80 MCG XX SCH (09:39)
[2017-01-10] MEDS: ACETAMINOPHEN 325 MG TAB PO PRN (09:42)
--- NOTE | 2017-01-10 11:21 | PN ---
Date/Time of Note Date/Time of Note DATE: 01/10/17 TIME: 11:15 Assessment/Plan VTE Prophylaxis VTE Prophylaxis Intervention: other Lines/Catheters IV [facility] Type [facility] Peripheral IV Urinary Cath still in place: No Assessment/Plan Chief Complaint/Hosp Course ASSESSMENT AND PLAN: 1. L2-L5 central spinal stenosis. The patient is status post L2-L3 diskectomy and L2-L3, L3-L4, and L4-L5 decompression. Continue post-surgical care. PT, OT evaluate and treat as per orthopedic surgeon. Continue pain medication. 2. Chronic obstructive pulmonary disease. Continue breathing treatment.QVAR. 3. Leukocytosis, likely post-surgical, likely secondary to dexamethasone during the surgery. The patient has been started on prophylactic antibiotics. We will continue cefazolin. 4. History of neuropathy. Continue gabapentin. 5. Orthostatic hypotension. Resolved status post , IV fluids 6. For gastrointestinal prophylaxis, on proton pump inhibitor. 7. For deep venous thrombosis prophylaxis, on sequential compression devices. Patient is medically stable to be discharged home if cleared by orthopedic surgeon Problems: Subjective 24 Hr Interval Summary Free Text/Dictation No new episodes of lightheadedness or dizziness Patient is able to ambulate with minimal assist Low-grade fever yesterday afternoon Exam/Review of Systems Vital Signs Vitals Vital Signs Date Time Temp Pulse Resp B/P Pulse Ox O2 Delivery O2 Flow Rate FiO2 01/10/17 08:27 97.8 88 18 106/57 91 01/09/17 14:47 Nasal Cannula 2.0 Intake and Output 01/09/17 01/09/17 01/10/17 15:00 23:00 07:00 Intake Total 1860 ml 1250 ml Output Total 50 ml 1350 ml Balance -50 ml 1860 ml -100 ml Exam General: The patient is well-developed, Not in acute distress. HEENT: Atraumatic, normocephalic. The pupils are equal and round . Neck: Supple with full range of motion. Chest: Normal expansion of the thorax during inspiration Lungs: Clear to auscultation bilaterally Heart: Normal S1-S2, Regular rhythm and rate. Abdomen: Soft , nontender, nondistended , bowel sounds are present. Extremities: Normal to inspection, no edema no cyanosis Neurologic: Normal mental status,The patient is awake, alert and oriented . Lumbar sacral: Surgical site is dry and clean Results Result Diagram: 01/09/17 0415 01/09/17 0415 Medications Medications Current Medications Potassium Chloride/Dextrose/ Sod Cl (D5-1/2ns + KCl 20 Meq) 1,000 ml @ 75 mls/ hr [id number] IV Last administered on 01/10/17 02:01; Admin Dose 75 MLS/HR; Start 01/07/17 at 11:02 Acetaminophen/ Hydrocodone Bitart ([place] (5/325)) 1 tab Q4H PRN PO PAIN LEVEL 1 -5; Start 01/07/17 at 11:30 Acetaminophen/ Hydrocodone Bitart ([place] (5/325)) 2 tab Q4H PRN PO PAIN LEVEL 6 -10 Last administered on 01/08/17 05:58; Admin Dose 2 TAB; Start 01/07/17 at 11 :30 Hydromorphone HCl (Dilaudid) 0.2 mg Q1H PRN IV BREAKTHROUGH PAIN Last administered on 01/08/17 10:56; Admin Dose 0.2 MG; Start 01/07/17 at 11:30 Ondansetron HCl (Zofran Inj) 4 mg Q6H PRN IV NAUSEA AND/OR VOMITING Last administered on 01/08/17 13:19; Admin Dose 4 MG; Start 01/07/17 at 11:30 Prochlorperazine (Compazine Inj) 10 mg Q6H PRN IV NAUSEA AND/OR VOMITING; Start 01/07/17 at 11:30 Bisacodyl (Dulcolax Supp) 10 mg DAILY PRN [place] CONSTIPATION; Start 01/07/17 at 11 :30 Docusate Sodium (Colace) 100 mg BID PO Last administered on 01/10/17 09:38; Admin Dose 100 MG; Start 01/07/17 at 21:00 Pantoprazole (Protonix Iv) 40 mg DAILY@06 IV Last administered on 01/10/17 05: 13; Admin Dose 40 MG; Start 01/08/17 at 06:00 Al Hydrox/Mg Hydrox/Simethicone (Mag-Al Plus) 15 ml Q6H PRN PO CONSTIPATION/ DYSPEPSIA; Start 01/07/17 at 11:30 Acetaminophen (Tylenol Tab) 650 mg Q4H PRN PO LEO OR TEMP GREATER THAN 101.3F Last administered on 01/10/17 09:42; Admin Dose 650 MG; Start 01/07/17 at 11:30 Cyclobenzaprine HCl (Flexeril) 5 mg TID PRN PO MUSCLE SPASMS; Start 01/07/17 at 11:30 Diphenhydramine HCl (Benadryl) 25 mg Q6H PRN IV ITCHING; Start 01/07/17 at 11: 30 Naloxone HCl (Narcan) 0.2 mg Q2M PRN IV RR 8 BREATHS/MIN OR LESS; Start at 11:30 Zolpidem Tartrate (Ambien) 5 mg HS PRN PO INSOMNIA Last administered on 20:31; Admin Dose 5 MG; Start 01/08/17 at 11:30 Patient Own Medication 1 ea 1 ea BID XX Last administered on 01/10/17 09:39; Admin Dose 1 EA; Start 01/09/17 at 21:00 Sodium Chloride (1/2 NS) 500 ml @ 75 mls/hr Q6H40M IV ; Start 01/09/17 at 12:00 TEO MORATAYA MD Jan 10, 2017 11:21
[2017-01-10] MEDS ORDERED: CEPH500C PO (11:24)
[2017-01-10] MEDS ORDERED: HYDR-906 PO (11:24)
== END 2017-01-10 17:35 | disposition home or self-care (01) | DRG 520 ==
LOC: REC 07:43 → MS1 17:10
PROVIDERS: ADMIT Orthopaedic Surgery Orthopaedic Surgery of the Spine; ATTEND Orthopaedic Surgery Orthopaedic Surgery of the Spine
PROC: 0SB20ZZ Excision of Lumbar Vertebral Disc, Open Approach (ICD-10-PCS; 2017-01-07)
PROC: 01NB0ZZ Release Lumbar Nerve, Open Approach (ICD-10-PCS; principal; 2017-01-07 11:00)
DX: M51.26 Other intervertebral disc displacement, lumbar region (principal); J44.9 Chronic obstructive pulmonary disease, unspecified; M48.06 Spinal stenosis, lumbar region; D72.829 Elevated white blood cell count, unspecified; I95.1 Orthostatic hypotension; Z87.891 Personal history of nicotine dependence; T38.0X5A Adverse effect of glucocorticoids and synthetic analogues, initial encounter; Y92.234 Operating room of hospital as the place of occurrence of the external cause
CPT/HCPCS: 36430; 72100; 80048; 85025; 86850; 86900; 86901; 86920; 86999; 87086; 97116; 97162; 97530; C9113; J0690; J1100; J1170; J1644; J2001; J2250; J2405; J2710; J3010; J3480; P9016; Q9967